=== PATIENT | male | born 1965 | race African-American/Black ===

== ENCOUNTER → 2016-11-27 | Outpatient (CLI) | payer MEDICARE ==
[~2016-11-27] MED LIST: ADCIRCA20 MG PO; ALDACTONE25 MG PO; AMLODIPINE BESY10 MG PO; ASPIRIN81 M2 PO; CARVEDILOL12.5 MG PO; CIALIS PO; DIABETA2.5 MG PO; DOCUSATE SODIU100 MG PO; FUROSEMIDE80 MG PO; LIPITOR40 MG PO; LISINOPRIL5 MG PO; POTASSIUM CHLO20 ME1 PO; WARFARIN SODIUM3 M1 PO
[2016-11-27 13:26] LABS: CHOLESTEROL 158 mg/dL (0-200); GLUCOSE RANDOM 132 mg/dL (70-110); HDL CHOLESTEROL 63 mg/dL (29-75); LDL CHOLESTEROL 72 mg/dL (-130); LDL/HDL RATIO 1 RATIO (0-4); TRIGLYCERIDES 114 mg/dL (10-160)
== END | disposition home or self-care (01) ==
LOC: CLAB 12:10
PROVIDERS: Surgery
DX: E66.01 Morbid (severe) obesity due to excess calories (principal)
CPT/HCPCS: 36415; 80061; 82947